=== PATIENT | male | born 1975 | race Asian ===

== ENCOUNTER 2022-05-08 16:47 | Emergency (ER) | payer BC ==
[~2022-05-08] VITALS: Ht 172.7 cm; Wt 101.0 kg
[2022-05-08 16:56] VITALS: BP 145/96
[2022-05-08] MEDS ORDERED: ASPIRIN 81MG TABLET PO ONE (17:15)
[2022-05-08 18:02] LABS: BASOPHILS % 0.2 % (0.0-2.0); EOSINOPHILS % 0.4 % (0.0-5.0); HEMATOCRIT. 47.5 % (42.0-52.0); HEMOGLOBIN. 15.5 g/dL (14.0-18.0); LYMPHOCYTES % 10.1 % (20.0-50.0); MEAN CORPUSCULAR HEMOGLOBIN 26.9 pg (28.0-32.0); MEAN CORPUSCULAR VOLUME 82.2 fL (80.0-94.0); MEAN PLATELET VOLUME 7.7 fl (7.4-10.4); MONOCYTES % 6.6 % (2.0-8.0); NEUTROPHILS % 82.7 % (40.0-76.0); PLATELET 283 x1000/uL (130-400); RED BLOOD CELL COUNT 5.78 mill/uL (4.7-6.1); RED CELL DISTRIBUTION WIDTH 16.5 % (11.6-14.6)
[2022-05-08 18:12] LABS: CHLORIDE 103 mEq/L (98-107)
[2022-05-08 18:23] LABS: ETHANOL BLOOD < 10 mg/dL
[2022-05-08] MEDS ORDERED: SODIUM CHLORIDE 0.9% 1,000 ML IV NR (18:39)
[2022-05-09] MEDS ORDERED: IPRATROPIUM/ALBUTEROL 0.5-3(2.5)MG/3ML NEB HHN PRN (02:30)
[2022-05-09] MEDS ORDERED: ACETAMINOPHEN 325MG TABLET PO PRN ×2 (02:30)
[2022-05-09] MEDS ORDERED: MAGNESIUM/ALUMINUM HYDROXIDE/SIMETHICONE 30ML UDC PO PRN (02:30)
[2022-05-09] MEDS ORDERED: GUAIFENESIN 200MG/10ML SUGAR FREE UDC PO PRN (02:30)
[2022-05-09] MEDS ORDERED: CLONIDINE 0.1MG TABLET PO PRN (02:30)
[2022-05-09] MEDS ORDERED: DOCUSATE SODIUM 100MG CAPSULE PO PRN (02:30)
[2022-05-09] MEDS ORDERED: ONDANSETRON HCL 4MG/2ML INJ IV PRN (02:30)
[2022-05-09] MEDS ORDERED: IPRATROPIUM BROMIDE (0.02%) 0.5MG/2.5ML NEB HHN PRN (02:45)
[2022-05-09] MEDS ORDERED: ALBUTEROL (0.083%) 2.5MG/3ML NEB HHN PRN (02:45)
== END 2022-05-09 04:35 | disposition left against medical advice (07) ==
LOC: ER 16:47 → EDBEDREQ 18:28 → EDBEDREQTM 05-09 02:51 → ER 05-09 04:35 → CANBEDREQ 05-10 09:37
DX: R00.1 Bradycardia, unspecified (principal); R55 Syncope and collapse; F12.10 Cannabis abuse, uncomplicated
CPT/HCPCS: 36415; 71045; 80053; 80320; 82962; 83880; 84484; 85025; 93005; 99291; G0480